=== PATIENT | male | born 1940 | race Caucasian/White ===

== ENCOUNTER → 2016-09-24 | Outpatient (CLI) | payer MEDICARE, BC | END | disposition home or self-care (01) | LOC: PCVCCLINIC 11:12 | PROVIDERS: ATTEND Internal Medicine Cardiovascular Disease | DX: I25.810 Atherosclerosis of coronary artery bypass graft(s) without angina pectoris (principal); I10 Essential (primary) hypertension; E78.00 Pure hypercholesterolemia, unspecified; I48.0 Paroxysmal atrial fibrillation; M19.90 Unspecified osteoarthritis, unspecified site; Z95.1 Presence of aortocoronary bypass graft; Z87.891 Personal history of nicotine dependence; Z79.82 Long term (current) use of aspirin | CPT/HCPCS: 80061; 93005; G0463 ==

== ENCOUNTER → 2016-11-05 | Outpatient (CLI) | payer MEDICARE, BC ==
--- NOTE | 2016-11-05 16:42 | PCVCIMAG ---
APPROVED REPORT Study performed: 11/05/2016 13:58:59 EXAM: Comprehensive 2D, Doppler, and color-flow Echocardiogram Patient Location: Echo lab Status: routine BSA: 1.84 HR: 66 bpmBP: 140/80 mmHg Rhythm: NSR Other Information Study Quality: Good Indications CABG, Hypertension, Atrial fib, Hyperlipidemia 2D Dimensions LVEF(%): 73.92 (>50%) IVSd: 8.35 (7-11mm)LVOT Diam: 20.43 (18-24mm) LVDd: 43.85 mm PWd: 8.64 (7-11mm)Ascending Ao: 37.00 (22-36mm) LVDs: 25.16 (25-40mm) Left Atrium: 39.77 (27-40mm) Aortic Root: 35.23 mm LV Single Plane 4CH: 51.03 % LV Single Plane 2CH: 59.11 %Garnica's LVEF: 55.07 % Biplane EF: 56.0 % Volumes Left Atrial Volume (Systole) Single Plane 4CH: 37.26 mLSingle Plane 2CH: 50.97 mL LA ESV Index: 24.00 mL/m2 Aortic Valve AoV Peak Kody.: 1.86 m/s AO Peak Gr.: 13.84 mmHg AI Vmax: 4.74 m/s AI Leake: 2.68 m/s2 AI PHT: 512.34 ms Mitral Valve E/A Ratio: 0.9 MV Decel. Time: 221.91 ms MV E Max Kody.: 0.86 m/s MV A Kody.: 0.92 m/s IVRT: 103.81 ms TDI E/Lateral E': 9.56E/Medial E': 9.56 Medial E' Kody.: 0.09 m/s Lateral E' Kody.: 0.09 m/s Pulmonary Valve PV Peak Gr.: 2.83 mmHg Pulmonary Vein P Vein S: 0.74 m/sP Vein A: 0.26 m/s P Vein D: 0.62 m/sP Vein A Dur.: 76.1 msec P Vein S/D Ratio: 1.19 Tricuspid Valve TR Peak Kody.: 2.75 m/s TR Peak Gr.: 30.15 mmHg Left Ventricle The left ventricle is normal size. There is normal LV segmental wall motion. There is normal left ventricular wall thickness. Left ventricular systolic function is normal. The left ventricular ejection fraction is within the normal range. LVEF is 55-60%. Grade I - abnormal relaxation pattern. Right Ventricle The right ventricle is normal size. The right ventricular systolic function is normal. Atria The left atrium size is normal. The right atrium size is normal. Aortic Valve The aortic valve is normal in structure. Mild aortic regurgitation. There is no aortic valvular stenosis. Mitral Valve The mitral valve is normal in structure. There is no mitral valve regurgitation noted. No evidence of mitral valve stenosis. Tricuspid Valve The tricuspid valve is normal in structure. Mild tricuspid regurgitation. Pulmonary artery pressure is 37mmhg. Pulmonic Valve The pulmonary valve is normal in structure. Trace pulmonic regurgitation. Great Vessels The aortic root is normal in size. IVC is normal in size and collapses with >50% inspiration Pericardium There is no pericardial effusion. <Conclusion> Left ventricular systolic function is normal. The left ventricular ejection fraction is within the normal range. LVEF is 55-60%. Grade I - abnormal relaxation pattern. The right ventricle is normal size. The left atrium size is normal. The aortic valve is normal in structure. There is no mitral valve regurgitation noted. Mild tricuspid regurgitation. Pulmonary artery pressure is 37mmhg. There is no pericardial effusion.
== END | disposition home or self-care (01) ==
LOC: PCVCIMAG 13:52
PROVIDERS: ATTEND Internal Medicine Cardiovascular Disease
DX: I35.1 Nonrheumatic aortic (valve) insufficiency (principal); I07.1 Rheumatic tricuspid insufficiency; I37.1 Nonrheumatic pulmonary valve insufficiency; I10 Essential (primary) hypertension; I48.0 Paroxysmal atrial fibrillation; E78.00 Pure hypercholesterolemia, unspecified; I25.10 Atherosclerotic heart disease of native coronary artery without angina pectoris; M19.90 Unspecified osteoarthritis, unspecified site; Z95.1 Presence of aortocoronary bypass graft; Z87.891 Personal history of nicotine dependence
CPT/HCPCS: 93005; 93306; G0463

== ENCOUNTER → 2017-10-07 | Outpatient (CLI) | payer MEDICARE, BC | END | disposition home or self-care (01) | LOC: PCVCCLINIC 11:07 | PROVIDERS: ATTEND Internal Medicine Cardiovascular Disease | DX: I25.810 Atherosclerosis of coronary artery bypass graft(s) without angina pectoris (principal); I48.0 Paroxysmal atrial fibrillation; I10 Essential (primary) hypertension; E78.00 Pure hypercholesterolemia, unspecified; D68.59 Other primary thrombophilia; Z79.899 Other long term (current) drug therapy | CPT/HCPCS: 80061; 93005; G0463 ==

== ENCOUNTER → 2018-04-10 | Outpatient (CLI) | payer BC, MEDICARE ==
--- NOTE | 2018-04-13 12:31 | PCVCIMAG ---
APPROVED REPORT Study performed: 04/10/2018 10:19:38 Exam: Stress Echocardiogram Indication: CAD s/p CABG Patient Location: Echo lab Stress Nurse: Yohana Blancas RN Status: routine Ht: 5 ft 7 in HR: 100 bpm BP: 130/60 mmHg Rhythm: Atrial Fibrillation Medical History Medical History: CAD s/p CABG, Hyperlipidemia, HTN Procedure The patient underwent an Exercise Stress Test using the Geovanny Protocol. Blood pressure, heart rate, and EKG were monitored. An Echocardiogram was performed by atmospheric technician in four stages in quad fashion. At peak stress, four selected images were obtained and placed side by side with resting images for comparison. Stress Test Details Stress Test: Exercise stress testing was performed using a Geovanny protocol. HR Resting HR: 100 bpmMax Heart Rate (APMHR): 142 bpm Max HR Achieved: 157 bpmTarget HR (85% APMHR): 120 bpm % of APMHR: 110 Recovery HR: 88 bpm HR response to stress: Normal HR response to stress BP Resting BP: 130/60 mmHg Max BP: 178/86 mmHg BP response to stress: Normal blood pressure response to stress. ECG Resting ECG: Atrial Fibrillation Stress ECG: Atrial Fibrillation Recovery ECG: Atrial Fibrillation Clinical Reason for Termination: Maximal effort Exercise duration: 3 min 42 sec Highest Stage Achieved: Stage 2: 2.5 mph at 12% grade. Exercise capacity: 6.20 METs Overall Exercise Capacity for Age: Poor Pre-Stress Echo The resting Echocardiogram showed normal left ventricular contractility with an estimated Ejection Fraction of about 55-60%. Normal wall motion in all segments on baseline images. Post-Stress Echo The stress Echocardiogram showed abnormal left ventricular contractility with an estimated Ejection Fraction of about 60-65%. Normal augmentation of wall motion in all segments on post stress images. Clinical No clinical or ECG evidence for ischemia. Conclusion Clinical Response: Non-ischemic Exercise Capacity: Below Average Stress ECG Response: Indeterminant Stress Echo Images: Non-ischemic The left ventricle is normal in size and wall thickness in both the rest and stress images. Other Information Study Quality: Good <Conclusion> The left ventricle is normal in size and wall thickness in both the rest and stress images.
== END | disposition home or self-care (01) ==
LOC: PCVCIMAG 10:14
PROVIDERS: ATTEND Internal Medicine Cardiovascular Disease
DX: I25.10 Atherosclerotic heart disease of native coronary artery without angina pectoris (principal); E78.5 Hyperlipidemia, unspecified; I10 Essential (primary) hypertension; Z95.1 Presence of aortocoronary bypass graft
CPT/HCPCS: 93325; 93351

== ENCOUNTER → 2018-08-20 | Outpatient (CLI) | payer MEDICARE | END | disposition home or self-care (01) | LOC: PCVCCLINIC 14:00 | PROVIDERS: ATTEND Internal Medicine Cardiovascular Disease | DX: I25.10 Atherosclerotic heart disease of native coronary artery without angina pectoris (principal); I48.0 Paroxysmal atrial fibrillation; I10 Essential (primary) hypertension; E78.00 Pure hypercholesterolemia, unspecified | CPT/HCPCS: 36415; 80061; 93005; G0463 ==